=== PATIENT | female | born 1955 | race Caucasian/White ===

== ENCOUNTER → 2017-09-26 | Outpatient (CLI) | payer BC ==
--- NOTE | 2017-09-26 13:04 | CT ---
HISTORY: Headache status post fall. Study: CT brain without contrast Comparison: None. Technique: Multiple axial images of the brain were obtained from the skull base to the vertex without administra tion of IV contrast. Dose reduction techniques including Automated Exposure Control (AEC) and adjust ment of mA and kV were utilized. Findings: Age-related cortical atrophy and chronic small vessel ischemic changes. No acute intraparenchymal hem orrhage or mass can be identified. No extra-axial fluid collections are seen. No alteration in the attenuation of the brain parenchyma can be identified to suggest acute or subacute ischemic change. The ventricular system is symmetric and nondilated. The extracranial structures are grossly unremark able. IMPRESSION: No acute intracranial pathology. Reported By:
== END ==
LOC: RAD 12:34
PROVIDERS: ATTEND Internal Medicine
DX: R51 Headache (principal); M54.5 Low back pain
CPT/HCPCS: 70450

== ENCOUNTER → 2017-09-27 | Outpatient (CLI) | payer BC ==
--- NOTE | 2017-09-27 09:29 | RAD ---
HISTORY: Low back pain. No history trauma. Study: AP and lateral lumbar spine Comparison: None Findings: Five lumbar type vertebra present. Mild facet arthropathy is noted throughout with [id number] at L4/L5 and L5/S1. Minimal degenerative changes present in the sacroiliac joints and hips as visual ized. The lateral view demonstrates normal curvature and alignment. Minimal disc space narrowing is present at L3/L4 and L5/S1. Minimal anterior spurring is noted at a few levels. No acute bony abno rmalities are identified. IMPRESSION: 1. Lumbar spondylosis as described above. 2. No acute bony abnormalities are identified. Reported By:
== END | disposition home or self-care (01) | DRG 552 ==
LOC: RAD 08:32
PROVIDERS: ATTEND Internal Medicine
DX: M54.5 Low back pain (principal); M47.896 Other spondylosis, lumbar region
CPT/HCPCS: 72100